=== PATIENT | male | born 1990 | race African-American/Black ===

== ENCOUNTER 2017-12-05 00:42 | Emergency (ER) | payer MEDICAID ==
[~2017-12-05] VITALS: Ht 175.3 cm; Wt 85.7 kg
[2017-12-05 01:02] VITALS: BP 134/84
[2017-12-05] MEDS ORDERED: HYDROcodone-ACET 10/325MG TAB PO ONE (02:30)
== END 2017-12-05 02:57 | disposition home or self-care (01) ==
LOC: ER 00:44
DX: S33.5XXA Sprain of ligaments of lumbar spine, initial encounter (principal); M54.5 Low back pain; G89.29 Other chronic pain; H92.09 Otalgia, unspecified ear; M54.16 Radiculopathy, lumbar region; X58.XXXA Exposure to other specified factors, initial encounter; Y93.89 Activity, other specified; Y92.89 Other specified places as the place of occurrence of the external cause; Y99.8 Other external cause status; Z88.6 Allergy status to analgesic agent
CPT/HCPCS: 72100